=== PATIENT | female | born 1995 | race Caucasian/White ===

== ENCOUNTER 2025-05-09 14:22 | Emergency (ER) | payer OTHER, SELFPAY ==
[2025-05-09 14:42] VITALS: BP 135/71; PULSE 95; RESP 15; O2SAT 100; BMI 20.9
[2025-05-09 14:46] VITALS: TEMP 37
--- NOTE | 2025-05-09 15:42 | DI.US.S_ITS ---
PROCEDURE: US OB <= 14 WEEKS FETUS INDICATIONS: CRAMPING OUTSIDE/PRIOR DATING DATA: Last menstrual period (LMP): 03/10/2025. LMP-based estimated date of delivery (ROSEMARIE): 12/07/2025. First dating scan (date and location): 05/09/2025. Estimated date of delivery (ROSEMARIE) from first dating scan: 12/14/2025. TECHNIQUE: Real-time scanning was performed of the fetus and maternal pelvic organs, with image documentation. Endovaginal scanning was also performed to better visualize the fetus and maternal ovaries. COMPARISON: [facility], MR, MR PELVIS WITHOUT CONTRAST, 09/28/2024, 19:22. FINDINGS: Embryo: A single live intrauterine is seen. The measured heart rate is 185 beats per minute. The crown-rump length measures 2.1 cm, corresponding to an estimated gestational age of 8 weeks 5 days. It is too early for detailed anatomic assessment. By visual inspection, the amount of amniotic fluid is within normal limits. There is a subchorionic hemorrhage seen along the internal cervical os measuring 12 x 9 x 2 cm. Maternal organs: The right ovary demonstrates a simple cyst that measures up to 4.4 cm. A complex 3 cm cyst can be seen involving the right ovary which may be related to a corpus luteum. IMPRESSION: A single live intrauterine is seen. No significant discrepancy is found between the estimated gestational age based on these images and the estimated gestational age based upon the given date of the last menstrual period. There is moderate subchorionic hemorrhage seen. Close clinical followup, with serial beta-hCG and serial ultrasound are recommended, if clinically appropriate. We strive to produce accurate, complete, and clear reports of imaging services. To assist us in improving patient care, this report was composed using standard report templates and voice recognition software. Therefore, it may contain abnormal punctuation, insertions and/or omissions. Occasional wrong-word or sound-alike substitutions may occur. Though we review the report and make efforts to correct it, we do recommend that the report be read carefully in proper context to recognize any text inaccuracies. Dictated by: Dereck Coombs M.D. on 05/09/2025 at 15:27 Approved by: Dereck Coombs M.D. on 05/09/2025 at 15:29
[2025-05-09 16:44] LABS: Add Manual Diff / Slide Review NO; Hematocrit 34.5 % (36-46); Hemoglobin 11.8 g/dL (12.0-16.0); Lymphocytes Absolute Auto 1200 /uL (1100-4500); Mean Corpuscular HGB Conc 34.3 % (30-36); Mean Corpuscular Hemoglobin 31.3 PG (26-34); Mean Corpuscular Volume 91.4 fL (80-100); Platelet Count 265 X10^3/uL (150-400)
[2025-05-09 17:07] LABS: Alanine Aminotransferase 20 IU/L (<35); Albumin 5.2 g/dL (3.5-5.0); Albumin Globulin Ratio 1.8 (1.0-2.8); Alkaline Phosphatase 42 U/L (38-126); Blood Urea Nitrogen 7 mg/dL (7-17); Calcium 9.3 mg/dL (8.4-10.2); Carbon Dioxide 22 mmol/L (22-32); Chloride 102 mmol/L (98-107); Estimated Glomerular Filt Rate > 60 mL/min (>60); Globulin 2.9 g/dL (1.7-4.1); Glucose 109 mg/dL (70-99); HEMOLYSIS < 15 (0-50); Potassium 3.3 mmol/L (3.4-5.1); Sodium 136 mmol/L (137-145); Total Protein 8.1 g/dL (6.3-8.2)
[2025-05-09 17:19] VITALS: BP 108/59; PULSE 95; RESP 20; O2SAT 100
[2025-05-09 17:24] LABS: HCG Quantitative /Beta subunit > 15000 mIU/mL
--- NOTE | 2025-05-09 17:55 | ED.ABDPAIN ---
HPI - Abdominal Pain General Chief Complaint: Abdominal Pain Stated Complaint: 8wks preg, cramping on L side Time Seen by Provider: 05/09/25 15:37 Source: patient Mode of arrival: Ambulatory History of Present Illness HPI narrative: 29-year-old female , only medical history of unspecified autoimmune disease only taking sulfasalazine. Presenting with acute on chronic left pelvic pain which is mild. Denies vaginal bleeding. denies fevers, chills, nausea, vomiting, diarrhea, abdominal pain, chest pain, shortness of breath, dizziness, headache, and urinary symptoms. Related Data Home Medications ?Medication ?Instructions ?Recorded ?Confirmed [id number] 400 mcg-om3 35 mg-dha 25 tab PO 04/11/25 04/11/25 mg-epa 5 mg-fish oil chewable tablet cholecalciferol (vitamin D3) 25 25 mcg PO DAILY 04/11/25 04/11/25 mcg (1,000 unit) capsule folic acid 1 mg tablet 1 mg PO DAILY 04/11/25 04/11/25 magnesium 250 mg tablet 250 mg PO DAILY 04/11/25 04/11/25 sulfasalazine 500 mg tablet See Rx Instructions PO DAILY 04/11/25 04/11/25 Previous Rx's ?Medication ?Instructions ?Recorded doxylamine 10 mg-pyridoxine (vit 2 tab PO BID PRN nausea and 05/09/25 B6) 10 mg tablet,delayed release vomiting #30 tabs (Diclegis) ferrous sulfate 325 mg (65 mg 325 mg PO DAILY #30 tabs 05/09/25 iron) tablet Allergies Allergy/AdvReac Type Severity Reaction Status Date / Time No Known Drug Allergies Allergy Unverified 04/11/25 09:34 Review of Systems Review of Systems ROS Unobtainable: All systems reviewed & are unremarkable except as noted in HPI and below Patient History Medical History (Updated 05/09/25 @ 18:36 by Omid Kulkarni MD) Abnormal Pap smear of cervix (~2022) Surgical History (Updated 04/11/25 @ 09:41 by Evi Bob RN) History of removal of skin mole [place] teeth removed Family History (Updated 04/11/25 @ 09:45 by Evi Bob, VADIM) Mother Hypertension Father Hypertension Grandmother Diabetes mellitus Hypertension Grandfather Hypertension Grandmother Rheumatoid arthritis Macular degeneration Grandfather Prostate cancer Parkinson's disease Family/Other Cleft palate Social History marital status: number of children: 0 household members: spouse lives independently: Yes caregiver/support person: No housing: house pets and animals: Yes (dogs & cats) education level: college (bachelor's degree) occupational status: student current occupational exposures/hazards: No special tk needs: No travel history: recent ([place], [place]) seatbelt use: always helmet use: Yes water heater temp set < 120 deg: No working smoke detector in home: Yes fire extinguisher in home: Yes carbon monox detector in home: Yes firearms in home: No do you feel safe at home: Yes (answered w/ on speaker in the room) second hand exposure: No alcohol intake: never substance use type: does not use during the past year weight has: remained stable well-balanced diet: about half the time daily servings fruits/ve-4 Type(s) of exercise: walking and weight lifting (light dumbells) frequency: daily Exam Initial Vital Signs Initial Vital Signs: Vital Signs Pulse Rate 95 H 05/09/25 14:42 Respiratory Rate 15 05/09/25 14:42 Blood Pressure 135/71 05/09/25 14:42 Pulse Oximetry 100 05/09/25 14:42 Oxygen Delivery Method Room Air 05/09/25 14:42 Const General: cooperative, healthy appearing, comfortable, well developed and well hydrated Nutritional Appearance: average body habitus [facility] Head: normal to inspection Ears: external ears normal Nose: external nose normal and nares normal Face and sinus: sinuses nontender, face symmetric, ecchymosis not on the right, not on the left and not bilaterally, erythema not on the right, not on the left and not bilaterally and edema not on the right, not on the left and not bilaterally Mouth: lip normal Eyes General: Yes appearance normal, both eyes and all related structures Eyelids: eyelids normal Sclera: sclerae normal Pupils: PERRL Neck Neck: normal visual inspection Resp Effort & Inspection: normal respiratory effort and able to speak in complete sentences Cardio Rate: regular rate Rhythm: regular rhythm Pulses: radial pulses present GI Inspection: normal to inspection and non-distended General: bimanual renal exam normal bilaterally Back/Spine/Pelvis Back: normal to inspection Skin General: no rashes or lesions noted Neuro General: patient alert, patient awake, patient oriented x3, gait normal, moves all extremities, normal light touch, pain and propioception, no focal motor deficits and CN's II-XI intact bilaterally Cognition: normal cognition Speech: speech normal Gait: normal gait Motor: muscle tone normal throughout Sensory Exam: no sensory deficits noted Extrem General: normal to inspection Psych Appearance: grossly normal Mental Status: mental status grossly normal Speech and Movement: speech and movement normal Mood: congruent mood Attitude: cooperative Thought Process: normal Thought Content: normal Judgment: judgment good Course Orders Ordered: ED Orders 05/09/25 15:42 OB <= 14 weeks fetus Stat 05/09/25 16:25 Complete Blood Count AUTO DIFF Stat Comprehensive Metabolic Panel Stat HCG Quantitative /Beta subunit Stat Type and Screen Stat Vital Signs Vital signs: Vital Signs - 8 hr 05/09/25 14:42 05/09/25 14:46 05/09/25 17:19 Temperature 98.6 F Pulse Rate 95 H 95 H Respiratory Rate 15 20 Blood Pressure 135/71 108/59 L Pulse Oximetry 100 100 Oxygen Delivery Method Room Air Room Air MDM - Abdominal Pain Lab Data 05/09/25 16:25 05/09/25 16:25 Labs: Lab Results 05/09/25 Range/Units 16:25 WBC 8.1 (4.5-11.0) X10^3/uL RBC 3.78 L (4.0-5.2) X10^6/uL Hgb 11.8 L (12.0-16.0) g/dL Hct 34.5 L (36-46) % MCV 91.4 (80-100) fL MCH 31.3 (26-34) PG MCHC 34.3 (30-36) % RDW 12.5 (11.6-14.8) % Plt Count 265 (150-400) X10^3/uL Neut % (Auto) 77.3 H (50-75) % Lymph % (Auto) 15.1 L (25-40) % [place] % (Auto) 6.8 (3-14) % Eos % (Auto) 0.0 L (2-4) % Baso % (Auto) 0.8 (0-2) % Neut # (Auto) 6300 (1049-2173) /uL Lymph # (Auto) 1200 (7254-3296) /uL [place] # (Auto) 500 (0-900) /uL Eos # (Auto) 0 (0-450) /uL Baso # (Auto) 100 (0-100) /uL Sodium 136 L (137-145) mmol/L Potassium 3.3 L (3.4-5.1) mmol/L Chloride 102 (98-107) mmol/L Carbon Dioxide 22 (22-32) mmol/L BUN 7 (7-17) mg/dL Creatinine 0.54 (0.52-1.04) mg/dL Estimated GFR > 60 (>60) mL/min BUN/Creatinine Ratio 13.0 (6-22) Glucose 109 H (70-99) mg/dL Calcium 9.3 (8.4-10.2) mg/dL Total Bilirubin 0.4 (0.2-1.3) mg/dL AST 33 (14-36) IU/L ALT 20 (<35) IU/L Alkaline Phosphatase 42 (38-126) U/L Total Protein 8.1 (6.3-8.2) g/dL Albumin 5.2 H (3.5-5.0) g/dL Globulin 2.9 (1.7-4.1) g/dL Albumin/Globulin Ratio 1.8 (1.0-2.8) HCG, Quant > 39336 mIU/mL Blood Type O Positive Antibody Screen Negative MDM Narrative Medical decision making narrative: Pt presents with pelvic pain. Check labs in consideration of anemia. UA in consideration of UTI/pyelo. IV pain meds for symptom control. No ECG/troponin indicated at this time as I considered but do not clinically suspect ACS. U/S pelvis to evaluate for evidence of ovarian cyst, ovarian torsion/PID/TOA. CT considered but not indicated at this time as I considered but do not suspect intra ab emergency/appendicitis, etc. Patient's labs show mild anemia. Patient does not have a prior. Does have a follow up with the retail management trainee on Tuesday. States she is taking vitamins. Discharge Plan Departure Patient Disposition: Home Clinical Impression: Pelvic pain during in first trimester, antepartum Instructions: DI for Abdominal Pain -- Early Activity Restrictions/Additional Instructions: Return for fever > 38?C, vomiting, inability to tolerate fluids, severely worsening pain, abnormal bowel movements, or unable to pass gas. Please follow-up with your retail management trainee as soon as possible. Prescriptions: New doxylamine-pyridoxine (vit B6) [Diclegis] 10-10 mg tablet,delayed release (DR/EC) 2 tab PO BID PRN (Reason: nausea and vomiting) Qty: 30 0RF Rx Instructions: Generic ok. Take up to 2 tabs as needed. ferrous sulfate 325 mg (65 mg iron) tablet 325 mg PO DAILY Qty: 30 0RF Rx Instructions: Please eat a very high fiber diet as this medication can constipate No Action sulfasalazine 500 mg tablet See Rx Instructions PO DAILY Rx Instructions: Take 2 tabs with breakfast, 1 tab with lunch, and 2 tabs with dinner orally daily; give with food (meal/snack) folic acid 1 mg tablet 1 mg PO DAILY [id number] oil 400 mcg-35 mg -25 mg-5 mg tablet,chewable PO magnesium 250 mg tablet 250 mg PO DAILY cholecalciferol (vitamin D3) 25 mcg (1,000 unit) capsule 25 mcg PO DAILY Referrals: Kemi Christianson, DNP, [employer] [Primary Care Provider, Nursing] Stand Alone Forms: Patient Portal/API
[2025-05-09 18:54] VITALS: BP 112/60; PULSE 84; RESP 18; O2SAT 100
== END 2025-05-09 18:56 | disposition home or self-care (01) ==
PROVIDERS: Emergency Provider Emergency Medicine; PCP Nurse Practitioner Family
DX: O26.891 Other specified pregnancy related conditions, first trimester (principal); R10.22 Pelvic and perineal pain left side; Z3A.08 8 weeks gestation of pregnancy
CPT/HCPCS: 76801; 76817; 80053; 81003; 84702; 85025; 86850; 86900; 86901; 99282; 99284

== ENCOUNTER → 2025-05-30 16:28 | Outpatient (CLI) | payer OTHER, SELFPAY ==
[2025-05-30 17:01] LABS: Appearance Urine UA CLEAR; Bilirubin Urine UA NEGATIVE (NEGATIVE); Color Urine UA YELLOW; Glucose Urine UA NEGATIVE (Negative); Ketones Urine UA NEGATIVE (NEGATIVE); Leukocyte Esterase Urine UA 1+ (NEGATIVE); Nitrite Urine UA NEGATIVE (Negative); Occult Blood Urine UA TRACE-INTACT (Negative); Protein Urine UA NEGATIVE (Negative); Specific Gravity Urine UA 1.010 (1.000-1.035); Urobilinogen Urine UA 0.2 E.U./dL (0.2)
[2025-05-30 17:09] LABS: pH Urine UA 6.0 (4.5-8.0)
[2025-05-30 17:37] LABS: Add Manual Diff / Slide Review NO; Hematocrit 32.3 % (36-46); Hemoglobin 11.3 g/dL (12.0-16.0); Lymphocytes Absolute Auto 1200 /uL (1100-4500); Mean Corpuscular HGB Conc 35.1 % (30-36); Mean Corpuscular Hemoglobin 31.9 PG (26-34); Mean Corpuscular Volume 90.8 fL (80-100); Platelet Count 224 X10^3/uL (150-400)
[2025-05-30 18:43] LABS: Hepatitis B Surface Antigen NEGATIVE s/c (NEGATIVE)
[2025-05-30 19:00] LABS: HIV 1 & 2 Ab/Ag 4th Gen Combo NEGATIVE (NEGATIVE); Hep C Virus Ab w/Reflex Quant NEGATIVE s/c (NEGATIVE)
== END ==
PROVIDERS: PCP Nurse Practitioner Family; Referring Provider Family Medicine; Visit Provider Family Medicine
DX: Z34.00 Encounter for supervision of normal first pregnancy, unspecified trimester (principal)
CPT/HCPCS: 36415; 80055; 81003; 81015; 86787; 86803; 86850; 86900; 86901; 87086; 87389

== ENCOUNTER → 2025-06-01 12:08 | Outpatient (CLI) | payer OTHER, SELFPAY ==
[2025-06-01 13:20] LABS: Natera Collection Specimen Collected
== END ==
PROVIDERS: PCP Nurse Practitioner Family; Referring Provider Nurse Practitioner Family; Visit Provider Family Medicine
DX: O26.891 Other specified pregnancy related conditions, first trimester (principal); R10.20 Pelvic and perineal pain unspecified side
CPT/HCPCS: 36415

== ENCOUNTER → 2025-06-14 12:19 | Outpatient (CLI) | payer OTHER, SELFPAY | PROVIDERS: PCP Nurse Practitioner Family; Referring Provider Family Medicine; Visit Provider Family Medicine | DX: N39.0 Urinary tract infection, site not specified (principal) | CPT/HCPCS: 87086 ==